=== PATIENT | male | born 1955 | race Caucasian/White ===

== ENCOUNTER 2017-12-19 09:52 | Emergency (ER) | payer OTHER ==
[2017-12-19 09:57] VITALS: BP 90/75; PULSE 80; RESP 20; TEMP 98.1; O2SAT 96
--- NOTE | 2017-12-19 11:05 | EDPHY ---
H & P Stated Complaint: lower back pain starting 1 mo ago, took steroids, became worse yesterday Source: Patient, Family () Exam Limitations: No limitations - Personal History Current Tetanus/Diphtheria Vaccine: Yes Current Tetanus Diphtheria and Acellular Pertussis (TDAP): Yes Tetanus Vaccine Date: < 10 years - Medical/Surgical History Hx Asthma: No Hx Chronic Respiratory Disease: No Hx Diabetes: No Hx Cardiac Disease: No Hx Renal Disease: No Hx Cirrhosis: No Hx Alcoholism: No Hx HIV/AIDS: No Hx Splenectomy or Spleen Trauma: No Other PMH: none reported - Social History Smoking Status: Never smoked Time Seen by Provider: 12/19/17 11:04 HPI/ROS: HPI: This is a 62-year-old male who presents with Chief Complaint: lower back pain starting 1 mo ago, took steroids, became worse yesterday Location: Lower back Quality: Aching pain Duration: Worse over the last 1 days Signs and Symptoms: No bleeding, no radiation, no numbness, no weakness, no tingling, no incontinence, + decreased range of motion, no swelling, + pain Timing: Acute on chronic Severity: [id number] Context: Patient is generally healthy, maintains active lifestyle presents with complaints of bilateral lower back achiness and stiffness that has increased over the last 1 day. He still able to ambulate but is concerned pain isn't getting better with stretching exercises and [id number] NSAIDs. Patient reports that he was seen at [facility] sports medicine approximately 1-2 months ago; at which time a lumbar sacral spine was ordered showing some sacroiliac degenerative changes but lumbar spine looked unremarkable per patient. Patient was given a 6 day course of steroids with almost complete relief of symptoms. He used to be a pharmaceutical rep and reports he does not like the way that muscle relaxers like Flexeril or Skelaxin make him feel. He denies any incontinence/urinary symptoms/paresthesias/ weakness. Eating and drinking normally without any abdominal or bowel movement complaints. Modifying Factors: See above Comment: ROS: see HPI Constitutional: No fever, no chills, no weight loss Eyes: No blurred vision Respiratory: No shortness of breath, no cough Cardiovascular: No chest pain Gastrointestinal: No nausea, no vomiting no diarrhea Genitourinary: No dysuria Extremities: No myalgias Neurologic: No weakness, no numbness Skin: No rashes Hematologic: No bruising, no bleeding MEDICAL/SURGICAL/SOCIAL HISTORY: Medical history: Generally healthy. Does not take any regular medications. Surgical history: Denies Social history: Employed. . CONSTITUTIONAL: Adult white male pleasant and cooperative nontoxic in appearance, awake and alert, no obvious distress HEENT: Atraumatic and normocephalic. NECK: supple, no midline tenderness, flexion 45 degrees, extension 45 degrees, right and left lateral flexion 45 degrees. No meningismus. Cardiovascular: Normal S1/S2, regular rate, regular rhythm, without murmur rub or gallop. PULMONARY/CHEST: Symmetrical and nontender. no crepitus. Clear to auscultation bilaterally. Good air movement. No accessory muscle usage. ABDOMEN: Soft, nondistended, nontender, no ecchymosis. PELVIC: no pain with rocking; bilateral hips flexion 125 degrees, extension 30 degrees, with no pain internal rotation and no pain external rotation. BACK: No midline tenderness, mild reproducible bilateral lumbar paraspinous muscle tenderness; moderate reproducible SI joint tenderness greater on the right than left; decreased flexion to only 50 degree; extension to 20; no paraspinous spasm, deep tendon reflexes 2/2, no pain with straight leg raise EXTREMITIES: 2/2 pulses, strength 5/5, DIP/PIP/MCP flexion/extension intact with good light touch sensation. no deformities, no clubbing, no cyanosis or edema. NEUROLOGICAL: no focal neuro deficits. GCS 15. Light touch sensation intact. SKIN: Warm and dry, no erythema. no rash. Good capillary refill. (Agueda Cortez) Constitutional: Initial Vital Signs Temperature (C) 36.7 C 12/19/17 09:53 Heart Rate 80 12/19/17 09:53 Respiratory Rate 20 12/19/17 09:53 Blood Pressure 90/75 L 12/19/17 09:53 O2 Sat (%) 96 12/19/17 09:53 O2 Delivery Mode Room Air Allergies/Adverse Reactions: No Known Allergies Allergy (Verified 12/19/17 09:53) Home Medications: Medication Instructions Recorded No Medications [NO HOME 1 ea [facility] [place] 11/21[place]11 MEDICATIONS] oxyCODONE/APAP 5/325 [Percocet 1 - 2 tab PO Q4H PRN #12 tab 12/19/17 5/325 (*)] predniSONE [predniSONE TAPER] 10 mg PO DAILY 6 Days ea 12/19/17 Medical Decision Making ED Course/Re-evaluation: I did not see this patient while he was in the emergency department. However his care was discussed with the PA while the patient was in the department. I agree with treatment plan and management (Jeromy Tirado) Patient politely refused any x-ray imaging, urinalysis are medications while in the emergency room. Patient has a follow-up appointment next at [facility] for which she was originally evaluated at. Prescription given for steroid taper and pain medication. No signs of neurovascular compromise/tenting of skin/compartment syndrome/ extremities and joints examined above and below area of concern and are neurovascularly intact. Patient was ambulatory at discharge. This patient was seen under the supervision of my secondary supervising physician. I evaluated care for this patient independently. (Agueda Cortez) Differential Diagnosis: Back pain including but not limited to muscular pain, herniated disc, spine fracture, intra-abdominal causes and urinary tract infection. (Agueda Cortez) Departure - Departure Disposition: Home, Routine, Self-Care Clinical Impression: SI (sacroiliac) joint inflammation Condition: Good Instructions: Sacroiliitis (ED), Sacroiliac Joint Injection (DC) Additional Instructions: Keep your follow-up appointment with [facility] on . Referrals: Nabor Fuentes DO [Primary Care Provider] - As per Instructions Prescriptions: oxyCODONE/APAP 5/325 [Percocet 5/325 (*)] 1 - 2 tab PO Q4H PRN #12 tab PRN Reason: Pain, Severe predniSONE [predniSONE TAPER] 10 mg PO DAILY 6 Days ea
== END 2017-12-19 11:34 | disposition home or self-care (01) ==
DX: M46.1 Sacroiliitis, not elsewhere classified (principal)

== ENCOUNTER 2017-12-26 11:44 | Emergency (ER) | payer OTHER ==
[2017-12-26 11:54] VITALS: BP 127/95; PULSE 70; RESP 16; TEMP 98.1; O2SAT 95
[2017-12-26] MEDS ORDERED: OXYCODONE/APAP 5/325 TAB PO ONE (12:37)
--- NOTE | 2017-12-26 12:58 | EDPHY ---
H & P Time Seen by Provider: 12/26/17 11:57 HPI/ROS: This patient complains of severe right low back pain in the SI joint region and sciatic region. He explains that he had twisting injury the end of October and was seen at [facility] sports medicine by Dr. Vazquez told that he has an SI joint injury. He had Solu-Medrol dose pack a significant improvement and started exercising again. However a week ago he pain it for 12 hr straight and then developed recurrence of the symptoms treated at [facility] with Percocet steroids with again improvement until past 24 hr when the symptoms recurred. He now reports 8 /10 pain in the area of the right low back/sciatic area extending into his buttock and down the posterior thigh. He is unable to bend over to tie his shoes due to the pain worsening with any bending maneuvers. Constitutional: No fevers Neuro: No numbness tingling or focal weakness. No bowel or bladder incontinence. GI: No abdominal pain associated with this. No nausea vomiting. : No hematuria. No dysuria. No testicular pain. Integumentary: No skin rash 7 point ROS is otherwise negative. Past Medical/Surgical History: SI joint injury as per HPI. Social History: No history of addiction. No drug use. Smoking Status: Never smoked Physical Exam: Physical Exam Vital signs are normal. General: No acute distress Eyes: Pupils equal and react to light. Extraocular motions are intact. Lungs: Clear to auscultation bilaterally. No respiratory distress. Cardiac: Regular rate and rhythm with no murmur gallop rub Abdomen: Soft nontender Back: Patient has no midline tenderness. He has right-sided tenderness around the SI joint and also tenderness in the sciatic notch on the right side. He has limited range of motion for flexion due to pain. He also has increased pain with lateral flexion toward the affected side. He is unwilling to lie flat for complete exam to check for straight leg raise. Skin: No rash or pallor. Neuro: Alert and oriented x3. He maintains 5/5 strength in great toe dorsiflexion plantar flexion bilaterally. He has no sensory deficits lower extremities or saddle area. He maintains 2+ symmetric patellar DTRs and weak but symmetric Achilles DTRs bilaterally. -no sensorimotor deficits. Initial differential diagnosis: Sciatic joint strain, sciatica, disc injury Constitutional: Initial Vital Signs Temperature (C) 36.7 C 12/26/17 11:48 Heart Rate 70 12/26/17 11:48 Respiratory Rate 16 12/26/17 11:48 Blood Pressure 127/95 H 12/26/17 11:48 O2 Sat (%) 95 12/26/17 11:48 O2 Delivery Mode Room Air Allergies/Adverse Reactions: No Known Allergies Allergy (Verified 12/26/17 11:54) Home Medications: Medication Instructions Recorded No Medications [NO HOME 1 ea [facility] 11/21/11 MEDICATIONS] oxyCODONE/APAP 5/325 [Percocet 1 - 2 tab PO Q4H PRN #12 tab 12/19/17 5/325 (*)] predniSONE [predniSONE TAPER] 10 mg PO DAILY 6 Days ea 12/19/17 Methocarbamol [Robaxin 750 mg (*)] 750 - 1,500 mg PO QID PRN #30 tab 12/26/17 oxyCODONE/APAP 5/325 [Percocet 1 - 2 tab PO Q4-6PRN PRN #20 tab 12/26/17 5/325 (*)] MDM/Departure - MDM Medications Given: Discontinued Medications Oxycodone/Acetaminophen (Percocet 5/325) 1 tab PO EDNOW ONE Stop: 12/26/17 12:38 Last Admin: 12/26/17 12:40 Dose: 1 tab ED Course/Re-evaluation: Discussion: No evidence of significant radiculopathy on exam-no neuro deficits. No evidence of cauda equina. I counseled patient regarding sciatica I demonstrated stretches that may be helpful. Will place him on NSAIDs, methocarbamol Percocet if needed for pain that prevents sleep. He will follow up with [facility] sports medicine. - Depart Disposition: Home, Routine, Self-Care Clinical Impression: Sciatica Qualifiers: Laterality: right Qualified Code(s): M54.31 - Sciatica, right side Condition: Good Instructions: Sciatica (ED) Additional Instructions: DX: Low back strain Plan: Ibuprofen 400-600 mg per 6 hours regularly for the next week then as needed. Methocarbamol muscle relaxants as needed. Percocet or Tylenol as needed for pain. No driving alcohol or work on percocet Starts daily stretches prior to taking muscle relaxants and Vicodin in the morning. 3-5 minutes each of: "Butterfly stretch," "Sphinx stretch", "pigeon stretch", and hamstring stretch. Avoid lifting more than 5-10 pounds until symptoms improve. Call your primary care physician for a followup appointment in 3-7 days. Go to the emergency department for worsening of your symptoms despite the treatment plan. Prescriptions: Methocarbamol [Robaxin 750 mg (*)] 750 - 1,500 mg PO QID PRN #30 tab PRN Reason: Muscle Spasms oxyCODONE/APAP 5/325 [Percocet 5/325 (*)] 1 - 2 tab PO Q4-6PRN PRN #20 tab PRN Reason: Pain Referrals: Nabor Fuentes DO [Primary Care Provider] - As per Instructions
== END 2017-12-26 12:45 | disposition home or self-care (01) ==
LOC: CED 11:44
DX: M54.31 Sciatica, right side (principal)